=== PATIENT | female | born 1950 | race Caucasian/White ===

== ENCOUNTER 2018-05-30 08:24 | Day surgery (SDC) | payer MEDICARE, BC ==
[~2018-05-30] VITALS: Ht 165.1 cm; Wt 80.5 kg
[~2018-05-30 08:24] MED LIST: AMLO5; AMLO5 PO; BUPR100 PO; CYCL10 PO; Dyazide 37.5-21 EACH; ESCI10; ESCI10 PO; FEXO180; HYDACE5 PO; IRBHYD150; IRBHYD150 PO; LEVSOD75; LEVSOD75 PO; RXCYCL10 PO; ZORVOLEX35 MG
[2018-05-30] MEDS ORDERED: Super Calcium600 MG (09:08)
[2018-05-30] MEDS ORDERED: Hair, Skin & N1 EACH (09:08)
[2018-05-30] MEDS ORDERED: CHOL10002 (09:08)
[2018-05-30] MEDS ORDERED: CLARITIN-D 121 EACH (09:09)
== END 2018-05-30 11:05 | disposition home or self-care (01) ==
LOC: ORSCSDS 08:24
PROVIDERS: Internal Medicine Gastroenterology
PROC: 0DJD8ZZ Inspection of Lower Intestinal Tract, Via Natural or Artificial Opening Endoscopic (ICD-10-PCS; principal; 2018-05-30 09:45)
DX: Z12.11 Encounter for screening for malignant neoplasm of colon (principal); Z86.010 Personal history of colon polyps; K57.30 Diverticulosis of large intestine without perforation or abscess without bleeding; Z80.0 Family history of malignant neoplasm of digestive organs; I10 Essential (primary) hypertension; F41.8 Other specified anxiety disorders; E03.9 Hypothyroidism, unspecified; Z79.899 Other long term (current) drug therapy
CPT/HCPCS: J7120

== ENCOUNTER 2023-06-26 08:26 | Day surgery (SDC) | payer MEDICARE, BC ==
[~2023-06-26] VITALS: Ht 167.6 cm; Wt 87.6 kg
[~2023-06-26 08:26] MED LIST changes: +CHOL10002; +CLARITIN-D 121 EACH; +Hair, Skin & N1 EACH; +Lactated Ringer's 1,000 ML IV ONE; +Super Calcium600 MG; +propofoL 50 ML IV ONE
[2023-06-26] MEDS ORDERED: ASPIR 8181 M1 (08:46)
[2023-06-26] MEDS ORDERED: Lactated Ringer's 1,000 ML IV ONE (09:38)
[2023-06-26 10:25] VITALS: BP 126/79
== END 2023-06-26 10:40 | disposition home or self-care (01) ==
LOC: ORSCSDS 08:26
PROVIDERS: Internal Medicine Gastroenterology
PROC: 0DBK8ZX Excision of Ascending Colon, Via Natural or Artificial Opening Endoscopic, Diagnostic (ICD-10-PCS; principal; 2023-06-26 09:45)
DX: Z12.11 Encounter for screening for malignant neoplasm of colon (principal); Z86.010 Personal history of colon polyps; Z80.0 Family history of malignant neoplasm of digestive organs; D12.2 Benign neoplasm of ascending colon; K57.30 Diverticulosis of large intestine without perforation or abscess without bleeding; I10 Essential (primary) hypertension; E03.9 Hypothyroidism, unspecified; Z79.899 Other long term (current) drug therapy; Z79.82 Long term (current) use of aspirin
CPT/HCPCS: 88305; J2704; J7120